=== PATIENT | female | born 1955 | race American Indian/Alaskan Native ===

== ENCOUNTER 2018-06-29 09:05 | Outpatient (CLI) | payer BC ==
--- NOTE | 2018-06-29 16:33 | Magnetic Resonance Report ---
BILATERAL BREAST MRI WITHOUT AND WITH CONTRAST: 06/29/18 09:05:00 CLINICAL: Newly diagnosed left breast cancer and presumed biopsy confirmed left axillary lymph node metastasis. I do not have imaging or pathology reports. COMPARISON:No comparison imaging. TECHNIQUE: Axial 1.0-mm T1 without, axial high resolution 2.0-mm T2 and axial 1.0-mm dynamic Vibrant high-resolution postcontrast T1 fat saturation sequences on a 1.5 [place] magnet. The examination was performed with an 8 channel dedicated [place] breast coil. Post processing with CAD and subtraction was performed on an [employer] workstation. 19.0 cc of Multihance was injected without incident for the contrast portion of the exam. Consent was obtained prior to the administration of the contrast. FINDINGS: Right: Marked background parenchymal enhancement. No mass or suspicious enhancement. No suspicious lymph nodes. Left: Marked background parenchymal enhancement. A lower outer enhancing mass 10.8 cm from the nipple and 4.2 cm from the chest wall contains a biopsy clip and presumably correlates with the confirmed left breast cancer. It measures 2.7 x 1.8 x 1.3 cm and demonstrates heterogeneous enhancement with mixed kinetics, 214% peak enhancement, 43% type I persistent, 34% type II plateau and 23% type III washout waveforms. A second highly suspicious mass is identified in the central breast approximately 5.9 cm from the nipple and 7.1 cm from the chest wall. It measures 2.8 x 2.8 x 2.4 cm and demonstrates heterogeneous enhancement with mixed kinetics, 203% peak enhancement, 54% type I persistent, 36% type II plateau and 10% type III washout waveforms. A third suspicious mass is identified in the lower outer quadrant 8.1 cm from the nipple and 7.3 cm from the chest wall. It measures 1.7 x 1.1 x 0.7 cm. The mass demonstrates heterogeneous enhancement with mixed kinetics, 181% peak enhancement, 68% type I persistent, 28% type II plateau and 4% type III washout. No other mass or suspicious enhancement. Multiple enlarged left axillary lymph nodes. The largest is a level I axillary node with a biopsy clip and it measures 3.8 x 2.1 cm. No suspicious internal mammary lymph nodes. IMPRESSION: 1. Multicentric left breast cancer with 3 highly suspicious masses. 2. Left axillary lymphadenopathy and presumed left axillary lymph node metastasis with a dominant 3.8 cm lymph node corresponding to a recently biopsied lymph node. 3. Negative right breast. RIGHT BI-RADS 1 - - Negative LEFT BI-RADS 6 -- Known Cancer
== END 2018-06-29 09:06 | disposition home or self-care (01) ==
LOC: SPVIMAG 09:05
PROVIDERS: ATTEND Obstetrics & Gynecology
DX: C77.3 Secondary and unspecified malignant neoplasm of axilla and upper limb lymph nodes (principal); C50.912 Malignant neoplasm of unspecified site of left female breast
CPT/HCPCS: A9577; C8908; 77049

== ENCOUNTER 2018-08-27 09:17 | Emergency (ER) | payer BC ==
[2018-08-27 10:14] LABS: Hematocrit 29.1 % (30.3-42.9); Hemoglobin 9.9 gm/dl (10.1-14.3); Mean Corpuscular HGB Conc 34 % (30-34); Mean Corpuscular Volume 90 fl (79-97); Platelet Count 124 K/mm3 (140-440); Red Blood Count 3.22 M/mm3 (3.65-5.03); Red Cell Distribution Width 15.4 % (13.2-15.2)
[2018-08-27 10:32] LABS: Creatine Kinase MB 1.4 ng/mL (0.0-4.0)
[2018-08-27 10:35] LABS: BUN/Creatinine Ratio 9; Blood Urea Nitrogen 8 mg/dL (7-17); Hemolysis Index 2
[2018-08-27 10:37] LABS: INR 0.87 (0.87-1.13)
[2018-08-27 10:38] LABS: Partial Thromboplastin Time 23.9 Sec. (24.2-36.6)
--- NOTE | 2018-08-27 11:09 | XRay Report ---
CHEST 2 VIEWS INDICATION: Shortness of breath. COMPARISON: 01/18/2018 FINDINGS: PA and lateral chest radiographs again demonstrate limited inspiration with mild exaggerated cardiomediastinal silhouette; cardiomegaly not excluded. New right chest port tip about the cavoatrial junction. Right hemidiaphragm approximately 2.5 cm higher than the left with mildly crowded markings at the right lung base. No significant pleural effusions or CHF. Multilevel spinal degenerative spurring. Stable cholecystectomy clips. CONCLUSION: Findings, as above. Thank you for the opportunity to participate in this patient's care.
--- NOTE | 2018-08-27 12:21 | Emergency Department Report ---
ED Shortness of Breath HPI - General Chief Complaint: Dyspnea/Respdistress Stated Complaint: SOB Time Seen by Provider: 08/27/18 09:44 Source: patient Mode of arrival: Ambulatory Limitations: No Limitations - History of Present Illness Initial Comments: 62-year-old female with a past medical history recently diagnosed breast cancer currently receiving chemotherapy and diabetes presents to the hospital complaining of dyspnea times one month. Symptoms worse with exertion. She denies chest pain, calf tenderness, leg edema, cough, fever, wheezing, or history of PE/DVT. Patient's physician ordered an outpatient CT of the chest symptoms are worsening for patient came to the ED. She works here at [employer]. Last chemotherapy session was August 20. After every chemotherapy patient received a 3 day course of prednisone. Her doctors are affiliated with [facility] - Related Data Allergies Allergy/AdvReac Type Severity Reaction Status Date / Time doxycycline AdvReac Vomiting Verified 08/27/18 09:18 ED Review of Systems ROS: Stated complaint: SOB Other details as noted in HPI Comment: All other systems reviewed and negative ED Past Medical Hx - Past Medical History Hx Diabetes: Yes Hx of Cancer: Yes (BREAST) - Social History Smoking Status: Never Smoker Substance Use Type: Alcohol ED Physical Exam - General Limitations: No Limitations - Other Other exam information: General: No limitations, patient is alert in no acute distress Head exam: Atraumatic, normocephalic Eyes exam: Normal appearance, pupils equal reactive to light, extraocular movements intact ENT: Moist mucous membrane, normal oropharynx Neck exam: Normal inspection, full range of motion, no meningismus nontender Respiratory exam: Clear to auscultation bilateral, no wheezes, rales, crackles. Port to chest wall Cardiovascular: Normal rate and rhythm, normal heart sounds Abdomen: Soft, nondistended, and nontender, with normal bowel sounds, no rebound, or guarding Extremity: Full range of motion normal inspection no deformity and no calf tenderness or edema Back: Normal Inspection, full range of motion, no tenderness Neurologic: Alert, oriented x3, cranial nerves intact, no motor or sensory deficit Psychiatric: normal affect, normal mood Skin: Warm, dry, intact ED Course Vital Signs 08/27/18 08/27/18 09:27 13:30 Temperature 98.1 F Pulse Rate 103 H 64 Respiratory 20 16 Rate Blood Pressure 120/71 Blood Pressure 122/55 [Left] O2 Sat by Pulse 99 96 Oximetry - Consultations Consultation #1: 08/27/18 14:47 Dr Adair trolley collector consult today. Goes patient's old ABC counts and CT findings. Patient denies cough or infectious symptoms. Recommend outpatient og shelton-up with her primary doctors affiliated with [facility] and [place]. ED Medical Decision Making - Lab Data Result diagrams: 08/27/18 09:54 08/27/18 09:54 Lab Results 08/27/18 08/27/18 08/27/18 Range/Units 09:54 09:54 09:54 WBC 1.9 L* (4.5-11.0) K/mm3 RBC 3.22 L (3.65-5.03) M/mm3 Hgb 9.9 L (10.1-14.3) gm/dl Hct 29.1 L (30.3-42.9) % MCV 90 (79-97) fl MCH 31 (28-32) pg MCHC 34 (30-34) % RDW 15.4 H (13.2-15.2) % Plt Count 124 L (140-440) K/mm3 Add Manual Diff Complete Total Counted 100 Seg Neuts % (Manual) 65.0 (40.0-70.0) % Band Neutrophils % 4.0 % Lymphocytes % (Manual) 23.0 (13.4-35.0) % Reactive Lymphs % (Man) 0 % Monocytes % (Manual) 8.0 H (0.0-7.3) % Eosinophils % (Manual) 0 (0.0-4.3) % Basophils % (Manual) 0 (0.0-1.8) % Metamyelocytes % 0 % Myelocytes % 0 % Promyelocytes % 0 % Blast Cells % 0 % Nucleated RBC % 2.0 H (0.0-0.9) % Seg Neutrophils # Man 1.2 L (1.8-7.7) K/mm3 Band Neutrophils # 0.1 K/mm3 Lymphocytes # (Manual) 0.4 L (1.2-5.4) K/mm3 Abs React Lymphs (Man) 0.0 K/mm3 Monocytes # (Manual) 0.2 (0.0-0.8) K/mm3 Eosinophils # (Manual) 0.0 (0.0-0.4) K/mm3 Basophils # (Manual) 0.0 (0.0-0.1) K/mm3 Metamyelocytes # 0.0 K/mm3 Myelocytes # 0.0 K/mm3 Promyelocytes # 0.0 K/mm3 Blast Cells # 0.0 K/mm3 WBC Morphology Not Reportable Hypersegmented Neuts Not Reportable Hyposegmented Neuts Not Reportable Hypogranular Neuts Not Reportable Smudge Cells Not Reportable Toxic Granulation Not Reportable Toxic Vacuolation Not Reportable Dohle Bodies Not Reportable Pelger-Huet Anomaly Not Reportable Abbey Rods Not Reportable Platelet Estimate Cons Clumped Platelets Not Reportable Plt Clumps, EDTA Not Reportable Large Platelets Rare Giant Platelets Not Reportable Platelet Satelliting Not Reportable Plt Morphology Comment Not Reportable RBC Morphology Normal Dimorphic RBCs Not Reportable Polychromasia Not Reportable Hypochromasia Not Reportable Poikilocytosis Not Reportable Anisocytosis Not Reportable Microcytosis Not Reportable Macrocytosis Not Reportable Spherocytes Not Reportable Pappenheimer Bodies Not Reportable Sickle Cells Not Reportable Target Cells Not Reportable Tear Drop Cells Not Reportable Ovalocytes Not Reportable Helmet Cells Not Reportable [place] Bodies Not Reportable [place] Rings Not Reportable [place] Cells Not Reportable Bite Cells Not Reportable Crenated Cell Not Reportable Elliptocytes Not Reportable Acanthocytes (Spur) Not Reportable Rouleaux Not Reportable Hemoglobin C Crystals Not Reportable Schistocytes Not Reportable Malaria parasites Not Reportable August Bodies Not Reportable Hem Pathologist Commnt No PT 12.4 (12.2-14.9) Sec. INR 0.87 (0.87-1.13) APTT 23.9 L (24.2-36.6) Sec. Sodium 140 (137-145) mmol/L Potassium 4.6 (3.6-5.0) mmol/L Chloride 102.2 (98-107) mmol/L Carbon Dioxide 25 (22-30) mmol/L Anion Gap 17 mmol/L BUN 8 (7-17) mg/dL Creatinine 0.9 (0.7-1.2) mg/dL Estimated GFR > 60 ml/min BUN/Creatinine Ratio 9 % Glucose 155 H (65-100) mg/dL Calcium 9.0 (8.4-10.2) mg/dL Total Creatine Kinase 59 (30-135) units/L CK-MB (CK-2) 1.4 (0.0-4.0) ng/mL CK-MB (CK-2) Rel Index 2.3 (0-4) Troponin T < 0.010 (0.00-0.029) ng/mL NT-Pro-B Natriuret Pep < 5 (0-900) pg/mL - EKG Data -: EKG Interpreted by Ca EKG shows normal: sinus rhythm, axis (qrs 14), QRS complexes (qrsd 84), ST-T waves (no stemi) Rate: normal (84) - Radiology Data Radiology results: report reviewed CHEST 2 VIEWS INDICATION: Shortness of breath. COMPARISON: 01/18/2018 FINDINGS: PA and lateral chest radiographs again demonstrate limited inspiration with mild exaggerated cardiomediastinal silhouette; cardiomegaly not excluded. New right chest port tip about the cavoatrial junction. Right hemidiaphragm approximately 2.5 cm higher than the left with mildly crowded markings at the right lung base. No significant pleural effusions or CHF. Multilevel spinal degenerative spurring. Stable cholecystectomy clips. CONCLUSION: Findings, as above. PROCEDURE: CT ANGIOGRAM OF THE CHEST FOR PULMONARY EMBOLISM TECHNIQUE: Computerized axial tomographic angiography of the chest and pulmonary arteries was performed after the IV injection of iodinated nonionic contrast. The image data was postprocessed using maximum intensity projection (MIP) and 2- dimensional multiplanar reformatted (MPR) techniques. The examination is specifically tailored to the evaluation of the pulmonary arteries per clinical request. Automated exposure control, adjustment of mA and/or kV according to patient size, or iterative reconstruction dose optimization techniques were utilized. CPT G9637, 25799 HISTORY: Shortness of breath R06.02, chest pain unspecified R07.9 , COMPARISONS: None . FINDINGS: Heart and pericardium: Normal. Thoracic aorta: Normal. Pulmonary vasculature: Normal. No pulmonary emboli. Lymph nodes: No enlarged thoracic lymph nodes. Lungs: Scattered perihilar groundglass opacities. No suspicious nodule or mass. No focal lesion. Pleural space: No effusion, thickening, or pneumothorax. Musculoskeletal structures: Enlarged left axillary lymph nodes with surrounding stranding of the subcutaneous tissues. The largest node measures up to 1 cm. Upper abdominal structures: No significant abnormality. IMPRESSION: No evidence of pulmonary embolism. Perihilar groundglass opacities that may reflect pulmonary edema ve rsus atelectasis. Enlarged left axillary lymph nodes measuring up to 1 cm in short axis. Recommend correlation with known history of breast cancer and mammogram findings. - Medical Decision Making pt denies infectious symptoms. Leukopenia likely secondary to chemotherapy. No signs of pulmonary embolism and room air saturation of 100%. Patient provided a copy of her reports from her imaging studies, labs, and images on disc so she may follow up with her doctors affiliated with [facility] and [place]. - Differential Diagnosis pneumonia, metastatic disease, pulmonary embolism Critical Care Time: No Critical care attestation.: If time is entered above; I have spent that time in minutes in the direct care of this critically ill patient, excluding procedure time. ED Disposition Clinical Impression: Dyspnea, Breast cancer, Pancytopenia Disposition: DC- TO HOME OR SELFCARE Is pt being admited?: No Does the pt Need Aspirin: No Condition: Stable Instructions: Dyspnea (ED), Breast Cancer (ED) Additional Instructions: Follow up with your doctor or the clinic/doctor provided. Return if symptoms worsen as indicated by your discharge instructions. Take a copy of the labs, imaging results, and CT scans of the images to your doctors for follow-up Referrals: CHIRAG BROWN MD [Other] - 2-3 Days Time of Disposition: 14:56
[2018-08-27 13:30] VITALS: BP 122/55
[2018-08-27 13:35] LABS: Band Neutrophils # (Manual) 0.1 K/mm3; Basophils % (Manual) 0 % (0.0-1.8); Eosinophils % (Manual) 0 % (0.0-4.3); Large Platelets Rare; Platelet Estimate Cons; RBC Morphology Normal; Total Cells Counted 100
--- NOTE | 2018-08-27 14:08 | Cat Scan Report ---
PROCEDURE: CT ANGIOGRAM OF THE CHEST FOR PULMONARY EMBOLISM TECHNIQUE: Computerized axial tomographic angiography of the chest and pulmonary arteries was perfor med after the IV injection of iodinated nonionic contrast. The image data was postprocessed using max imum intensity projection (MIP) and 2-dimensional multiplanar reformatted (MPR) techniques. The exami nation is specifically tailored to the evaluation of the pulmonary arteries per clinical request. Au tomated exposure control, adjustment of mA and/or kV according to patient size, or iterative reconstr uction dose optimization techniques were utilized. CPT G9637, 75117 HISTORY: Shortness of breath R06.02, chest pain unspecified R07.9 , COMPARISONS: None . FINDINGS: Heart and pericardium: Normal. Thoracic aorta: Normal. Pulmonary vasculature: Normal. No pulmonary emboli. Lymph nodes: No enlarged thoracic lymph nodes. Lungs: Scattered perihilar groundglass opacities. No suspicious nodule or mass. No focal lesion. Pleural space: No effusion, thickening, or pneumothorax. Musculoskeletal structures: Enlarged left axillary lymph nodes with surrounding stranding of the sub cutaneous tissues. The largest node measures up to 1 cm. Upper abdominal structures: No significant abnormality. IMPRESSION: No evidence of pulmonary embolism. Perihilar groundglass opacities that may reflect pulmonary edema versus atelectasis. Enlarged left axillary lymph nodes measuring up to 1 cm in short axis. Recommend correlation with kno melony history of breast cancer and mammogram findings. This document is electronically signed by Jana Sommer MD., Aug 27 2018 02:06:58 PM ET
== END 2018-08-27 15:52 | disposition home or self-care (01) ==
LOC: ED 09:17
DX: D61.818 Other pancytopenia (principal); C50.919 Malignant neoplasm of unspecified site of unspecified female breast; R06.00 Dyspnea, unspecified; E11.9 Type 2 diabetes mellitus without complications
CPT/HCPCS: 36415; 71046; 71275; 80048; 82550; 82553; 82962; 83880; 84484; 85007; 85025; 85610; 85730; 93005; 93010; 99284; Q9967

== ENCOUNTER 2018-09-30 07:52 | Outpatient (CLI) | payer BC | END 2018-09-30 07:53 | disposition home or self-care (01) | LOC: ECHO 07:52 | PROVIDERS: ATTEND Internal Medicine Hematology & Oncology | DX: I07.1 Rheumatic tricuspid insufficiency (principal); C50.912 Malignant neoplasm of unspecified site of left female breast | CPT/HCPCS: 93306 ==

== ENCOUNTER 2019-03-11 09:26 | Outpatient (CLI) | payer BC ==
[2019-03-11 13:55] LABS: Blood Urea Nitrogen 6 mg/dL (7-17)
--- NOTE | 2019-03-11 14:53 | Magnetic Resonance Report ---
MRI BRAIN 03/11/2019 INDICATION / CLINICAL INFORMATION: Dizziness. History of breast cancer.. TECHNIQUE: Multiplanar, multisequence MR images of the brain were obtained. COMPARISON: None available. FINDINGS: BRAIN / INTRACRANIAL CONTENTS: Unenhanced and enhanced MR images of the brain demonstrate no evidence of acute intracranial abnormality. Ventricles and sulci are normal in size and shape. There is no evidence of ischemic injury, demyelination, hemorrhage, or mass. There are no abnormal ex tra-axial fluid collections. A few scattered nonspecific white matter microangiopathic T2 weighted hyperintensities are noted inci dentally. Postcontrast images demonstrate no abnormal contrast enhancement. EXTRACRANIAL: Unremarkable CRANIOCERVICAL JUNCTION: No significant abnormality. VASCULAR FLOW-VOIDS: No significant abnormality. IMPRESSION: Essentially negative unenhanced and enhanced MRI of the brain for age. Signer Name: Philipp Riggins MD Signed: 03/11/2019 2:49 PM Workstation Name: [id number]
== END 2019-03-11 09:27 | disposition home or self-care (01) ==
LOC: MRI 09:26
PROVIDERS: ATTEND Internal Medicine Hematology & Oncology
DX: C50.912 Malignant neoplasm of unspecified site of left female breast (principal); R42 Dizziness and giddiness; R07.89 Other chest pain; Z88.8 Allergy status to other drugs, medicaments and biological substances
CPT/HCPCS: 36415; 70553; 82565; 84520; A9577

== ENCOUNTER 2019-03-31 09:54 | Outpatient (CLI) | payer BC ==
--- NOTE | 2019-03-31 14:05 | PET Report ---
PET/CT Scan03/31/2019 Indication: C50.919 Restaging Technique: 16 mCi of F18-FDG is administered via the right antecubital site at 1036 hours. Imaging is performe d at 1121 hours. Glucose level is 129 mg/dl just prior to the exam. Imaging is performed from the s kull base to the proximal thighs. CT imaging is obtained for attenuation correction and anatomic lo calization. Comparison: None Available Findings: There is a pericaval lymph node which is hypermetabolic measuring 10.2 SUV. There are aortocaval nod es which are hypermetabolic measuring 10.9 SUV in the left periaortic node which measures 19.3 SUV. T his is all consistent with static disease. No pathologic uptake of tracer is seen in the chest or nec k. Is no pathologic uptake in the pelvis. On review of the accompanying CT, no pulmonary nodules or masses are seen. Impression: There is hypermetabolic adenopathy in the retroperitoneum characteristic of neoplastic disease. This could represent metastatic disease from breast cancer but is not the most common location. The possib ility that this could represent different neoplastic process is considered in the differential. Signer Name: Justice Torres MD Signed: 03/31/2019 2:00 PM Workstation Name: [id number]
== END 2019-03-31 09:55 | disposition home or self-care (01) ==
LOC: PET 09:54
PROVIDERS: ATTEND Internal Medicine Hematology & Oncology
DX: C50.919 Malignant neoplasm of unspecified site of unspecified female breast (principal); R59.9 Enlarged lymph nodes, unspecified
CPT/HCPCS: 78815; 82962; A9552

== ENCOUNTER 2019-04-15 09:25 | Outpatient (CLI) | payer BC | END 2019-04-15 09:26 | disposition home or self-care (01) | LOC: ECHO 09:25 | PROVIDERS: ATTEND Internal Medicine Hematology & Oncology | DX: C50.912 Malignant neoplasm of unspecified site of left female breast (principal); R06.02 Shortness of breath; R59.0 Localized enlarged lymph nodes | CPT/HCPCS: 93306 ==